=== PATIENT | female | born 1980 | race African-American/Black ===

== ENCOUNTER 2016-10-04 16:38 | Emergency (ER) | payer OTHER ==
[~2016-10-04] VITALS: Ht 157.5 cm; Wt 47.6 kg
[~2016-10-04 16:38] MED LIST: FLAGYL PO; KEFLEX500 MG PO; MEDROLDOSEPACK PO; NEOMYCIN-POLY-7.5 ML OP; NOHOMEMEDICATIONS; NORCO 5-325 TA1 EACH PO; NORVASC10 MG PO; ONDANSETRON HCL4 M2 PO; ZOFRAN ODT4 MG PO
[2016-10-04] MEDS ORDERED: METFORMIN HCL500 MG PO (16:52)
[2016-10-04 17:12] LABS: ABSOLUTE NEUTROPHILS 10.8 thou/uL (1.4-8.2); BASOPHILS 0.2 % (0.0-2.0); HEMATOCRIT 39.4 % (37.0-47.0); HEMOGLOBIN 13.1 gm/dL (12.0-15.0); LYMPHOCYTES 11.7 % (24.0-44.0); MCH 26.9 pg (26.0-34.0); MCHC 33.3 % (28.0-37.0); MCV 80.6 fL (80.0-100.0); MONOCYTES 8.1 % (1.0-8.0); PLATELET COUNT 521 thou/uL (150-400); RBC 4.89 mil/uL (4.20-5.00); RDW 15.4 % (10.5-14.5); WBC 13.5 thou/uL (4.0-11.0)
[2016-10-04 17:17] LABS: MANUAL DIFF NO
[2016-10-04 17:22] LABS: CALCIUM 9.4 mg/dL (8.5-10.1); CREATININE 0.9 mg/dL (0.6-1.3); POTASSIUM 3.6 mmol/L (3.5-5.1)
[2016-10-04 17:22] LABS: URINE BLOOD 2+ (Negative); URINE COLOR YELLOW; URINE GLUCOSE-RANDOM* NEGATIVE (Negative); URINE KETONES 1+ (Negative); URINE LEUKOCYTES-REFLEX NEGATIVE (Negative); URINE PROTEIN (DIPSTICK) 3+ (Negative); URINE SPECIFIC GRAVITY >= 1.030 (1.003-1.035); URINE UROBILINOGEN 0.2 E.U./dl (0.2-1.0)
[2016-10-04 17:24] LABS: ICTOTEST (BILI CONFIRMATORY) Negative (Negative); URINE BILIRUBIN NEGATIVE (Negative)
[2016-10-04 17:28] LABS: ALBUMIN 4.3 g/dL (3.4-5.0); TOTAL BILIRUBIN 0.5 mg/dL (<0.1-1.0); TOTAL PROTEIN 9.2 g/dL (6.4-8.2)
[2016-10-04 17:43] LABS: CASTS None Seen /LPF (None Seen); CRYSTALS None Seen /LPF (None Seen); SQUAMOUS >10 Many /LPF (0-3); URINE RBC 0-2 Rare /HPF (0-2); URINE WBC-REFLEX 6-15 Few /HPF (0-5)
[2016-10-04] MEDS ORDERED: NAPROSYN500 MG PO (19:40)
[2016-10-04] MEDS ORDERED: PHENERGAN 25 MG25 M1 PO (19:40)
[2016-10-04] MEDS ORDERED: BENTYL 20 MG TA20 M1 PO (19:40)
[2016-10-04 19:54] VITALS: BP 152/92
== END 2016-10-04 20:00 | disposition home or self-care (01) ==
LOC: ER 16:38
PROVIDERS: Emergency Medicine
DX: K81.0 Acute cholecystitis (principal); I10 Essential (primary) hypertension; F10.99 Alcohol use, unspecified with unspecified alcohol-induced disorder